=== PATIENT | female | born 1965 | race Caucasian/White ===

== ENCOUNTER 2017-04-04 14:40 | Emergency (ER) | payer OTHER ==
[2017-04-04 15:08] VITALS: BP 145/94
--- NOTE | 2017-04-04 15:31 | ED Physician Documentation ---
History of Present Illness - Stated complaint Stated Complaint: MEMORY LOSS, FELL OFF HORSE - Chief complaint Chief Complaint: Trauma Hd/Nk - Additonal information Additional information: hx from pt and 52 f per HBD today then fell off a horse not wearing a helmet did not witness pt cannot recall the fall - amnesia and AMS pt denies any pain Review of Systems Constitutional: denies: Fever Ears: denies: Drainage/discharge Nose: denies: Epistaxis Cardiac: denies: Chest pain / pressure Respiratory: denies: Dyspnea GI: denies: Abdominal Pain Musculoskeletal: denies: Neck pain, Back pain Neurologic: reports: Head injury (prsumed - not witnessed). denies: Headache Endocrine: denies: Easy bruising / bleeding Immunocompromised: denies: Immunocompromised PD PAST MEDICAL HISTORY - Present Medications Home Medications: Ambulatory Orders Medication Instructions Recorded Confirmed No Known Home Medications [No 04/04/17 04/04/17 Known Home Medications] - Allergies Allergies/Adverse Reactions: Allergies Allergy/AdvReac Type Severity Reaction Status Date / Time No Known Drug Allergies Allergy Verified 04/04/17 15:08 PD ED PE NORMAL - Vitals Vital signs reviewed: Yes (tachy) - General General: Alert and oriented X 3 - HEENT HEENT: Atraumatic, PERRL, Other (NT to palpate, no blood) - Neck Neck: No bony TTP (cant clear 2/2 EtOH so will iamge) - Cardiac Cardiac: RRR (tachy) - Respiratory Respiratory: No respiratory distress, Clear bilaterally - Abdomen Abdomen: Other (absolutely non distension, no TTP anywhere, no bruising) - Derm Derm: Normal color - Extremities Extremities: No deformity, No tenderness to palpate, Normal ROM s pain - Neuro Neuro: Alert and oriented X 3, Other (odd affect, seems anxious and a bit belligerent) Results - Vitals Vitals: Vital Signs - 24 hr 04/04/17 15:02 Temperature 36.4 C L Heart Rate 130 H Respiratory 16 Rate Blood Pressure 145/94 H O2 Saturation 97 Oxygen O2 Source Room air PD MEDICAL DECISION MAKING - ED course ED course: pt with odd affect and not willing to get recommended testing and cannot elaborate for me why she does not want to get testing - she just doesn't per HBD - possible HI but not witness and pt has no signs of head trauma and denies MURRAY - but pt is steady on her feet, alert oriented X 3, able to listen to my rec and concerns and repeat back to me risks and benefits of testing vs leaving AMA so feel pt is making a poor choice but appears to have the capacity to make this decision her states he will watch over her at home they both promise to return if worse in any way Departure - Departure Disposition: 07 Against Medical Advice Clinical Impression: Concussion Qualifiers: Encounter type: initial encounter Loss of consciousness presence/duration: with LOC of unspecified duration Qualified Code(s): S06.0X9A - Concussion with loss of consciousness of unspecified duration, initial encounter Condition: Fair Comments: I am worried about your loss of memory and have recommended a CT scan of your head and spine to rule out fracture and brain or spinal cord injuries. Also I am worried about your fast heart rate and recommended blood work to help evaluate possible causes of that as well I have carefully explained to you the reasons I recommend these tests and you are declining to get the tests done. You have verbalized that you understand why I recommend the tests and that you could have a bad outcome or even if you do not get the tests done You want to go home and have the right to make that decision. Your has said he will watch you at home . If you get worse or change your mind at any time, please come back to the ER - we are not mad and would welcome the opportunity to care for you Discharge Date/Time: 04/04/17 15:53
== END 2017-04-04 15:53 | disposition left against medical advice (07) ==
LOC: ED 14:40
DX: S06.0X9A Concussion with loss of consciousness of unspecified duration, initial encounter (principal); V80.010A Animal-rider injured by fall from or being thrown from horse in noncollision accident, initial encounter; R41.3 Other amnesia
CPT/HCPCS: 80053; 80320; 83690; 85025; 99283

== ENCOUNTER 2021-08-25 09:11 | Outpatient (CLI) | payer OTHER ==
--- NOTE | 2021-08-27 16:13 | CARDIAC PROCEDURE NOTE ---
Stress Test Report Service Date: 08/25/21 Service Time: 09:30 Ordering Provider: Rich Alfredo Indication for Test: Assess for an ischemic contribution to dyspnea, occurring either at rest or with exertion. Significant Medical History: -Adelaida describes herself as a previously very active and athletic person, having participated in [employer] events and [employer] for many years. 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 She was reportedly in stable health prior to an episode in April, where she awoke in the morning from a dream that she was having a heart attack, finding her systolic blood pressure to be 200. Although she was advised to seek evaluation at an Emergency Department she deferred this and was seen by her primary provider about 10 days later. 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 -When she was seen in clinic she described an acute increase in chronic dyspnea, with blood pressures in the 140s. She was initiated on therapy that included metoprolol, rosuvastatin, albuterol (to use as needed for a different kind of dyspnea suggesting acute bronchospasm) and prn Xanax. She had a difficult time adjusting to the medications initially and ultimately discerned that the primary offender appeared to be rosuvastatin making her very weak, such that she replaced this with red yeast rice. -Today she reports that in the past 2 weeks on a stable regimen of metoprolol succinate 25 mg twice daily and prn use of albuterol and Xanax she is feeling better than she had been since the April incident. 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 She denies experiencing exertional chest discomfort, lightheadedness or significant palpitations, though does have intermittent discomfort at the inferior margin of her left scapula without or with some discomfort down the lateral surface of her upper left arm. Cardiac Risk Factors: Positive for hypertension (possibly as far back as 15-20 years), hyperlipidemia and some family history of CAD (father in elder years); she has no history of diabetes and smoked tobacco cigarettes for 10 years but quit 17 years ago. Type of Stress Test: ETT with Echocardiography Procedure: -Exercise Treadmill Test- After signing informed consent, the patient baseline echo imaging at rest and then performed exercise using a Anthony protocol. The patient exercised for 7 minutes 2 seconds and achieved a peak heart rate of 167 (101 percent predicted maximum heart rate for age), and an estimated workload of 10.2 METS. The test was terminated due to fatigue/shortness of breath. Resting heart rate: 91 Peak heart rate: 167 Normal response to exercise. Resting BP: 160/107 Peak BP: 218/82 Hypertensive at rest with physiologic response of systolic and diastolic blood pressures to exercise. Rhythm during exercise: Sinus rhythm throughout, with rare isolated PACs and PVCs, with a single PAC couplet recorded. Symptoms: In early stage 2 she noted her typical mild cramp-like discomfort at the lower margin of her medial scapula; this did not worsen with more exertion and abated rapidly in recovery. She denied left chest or arm discomfort. Although she was breathing heavily throughout the protocol, dyspnea was not more limiting than overall fatigue in decision to stop walking. EKG at rest showed normal sinus rhythm, normal in all aspects. EKG at peak stress showed J-point depression with upsloping ST depression, NOT meetinhg diagnostic criteria for ischemia. In Recovery heart rate rapidly and normally returned to baseline level and BP gradually decreased, though remaining slightly elevated above baseline (183/79 at 5:00). Echo imaging performed at rest and with stress will be reported separately. Cornelio Bone MD, was present throughout this treadmill stress echocardiogram and supervised it in its entirety. Summary: 1) Average exercise tolerance for age and gender as evidenced by EILEEN of 0.6%. 2) Normal resting EKG. 3) Adequate level of exercise was achieved on this treadmill stress test. 4) Hypertensive at rest with physiologic BP response to exercise; note patient has been off metoprolol for 72 hours prior to the study. 5) No ischemic changes by EKG criteria were seen at peak stress. 6) Echo image interpretation reveals normal left ventricular size and systolic function, with appropriate hyperdynamic augmentation of all segments with exercise, indicating no evidence of prior infarct or inducible ischemia. No valve abnormality, LV hypertrophy or elevation in estimated pulmonary artery systolic pressure on screening study. See separate report for more details. CONCLUSIONS: Reassuringly low risk treadmill stress echocardiogram with no symptom, EKG of echo evidence of inducible ischemia.
== END 2021-08-25 09:12 | disposition home or self-care (01) ==
LOC: DI 09:11
PROVIDERS: ATTEND Internal Medicine
DX: R06.09 Other forms of dyspnea (principal); I10 Essential (primary) hypertension; E78.5 Hyperlipidemia, unspecified; Z82.49 Family history of ischemic heart disease and other diseases of the circulatory system; Z87.891 Personal history of nicotine dependence
CPT/HCPCS: 93016; 93017; 93018; 93350

== ENCOUNTER 2021-08-25 09:14 | Outpatient (CLI) | payer OTHER ==
--- NOTE | 2021-08-25 09:40 | CARDIAC PROCEDURE NOTE ---
Stress Test Report Service Date: 08/25/21 Service Time: 09:30 Ordering Provider: Rich Alfredo Indication for Test: Assess for an ischemic contribution to dyspnea, occurring either at rest or with exertion. Significant Medical History: -Adelaida describes herself as a previously very active and athletic person, having participated in [employer] events and [employer] for many years. 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 She was reportedly in stable health prior to an episode in April, where she awoke in the morning from a dream that she was having a heart attack, finding her systolic blood pressure to be 200. Although she was advised to seek evaluation at an Emergency Department she deferred this and was seen by her primary provider about 10 days later. In the interim she described marked debility with severe weakness, noting inability to car pick up driver Thanksgiving dinner, for example. -When she was seen in clinic she described an acute increase in chronic dyspnea, with blood pressures in the 140s. She was initiated on therapy that included metoprolol, rosuvastatin, albuterol (to use as needed for a different kind of dyspnea suggesting acute bronchospasm) and prn Xanax. She had a difficult time adjusting to the medications initially and ultimately discerned that the primary offender appeared to be rosuvastatin making her very weak, such that she replaced this with red yeast rice. -Today she reports that in the past 2 weeks on a stable regimen of metoprolol succinate 25 mg twice daily and prn use of albuterol and Xanax she is feeling better than she had been since the April incident. 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 She denies experiencing exertional chest discomfort, lightheadedness or significant palpitations, though does have intermittent discomfort at the inferior margin of her left scapula without or with some discomfort down the lateral surface of her upper left arm. Cardiac Risk Factors: Positive for hypertension (possibly as far back as 15-20 years), hyperlipidemia and some family history of CAD (father in elder years); she has no history of diabetes and smoked tobacco cigarettes for 10 years but quit 17 years ago. Type of Stress Test: ETT with Echocardiography Procedure: -Exercise Treadmill Test- After signing informed consent, the patient baseline echo imaging at rest and then performed exercise using a Anthony protocol. The patient exercised for 7 minutes 2 seconds and achieved a peak heart rate of 167 (101 percent predicted maximum heart rate for age), and an estimated workload of 10.2 METS. The test was terminated due to fatigue/shortness of breath. Resting heart rate: 91 Peak heart rate: 167 Normal response to exercise. Resting BP: 160/107 Peak BP: 218/82 Hypertensive at rest with physiologic response of systolic and diastolic blood pressures to exercise. Rhythm during exercise: Sinus rhythm throughout, with rare isolated PACs and PVCs, with a single PAC couplet recorded. Symptoms: In early stage 2 she noted her typical mild cramp-like discomfort at the lower margin of her medial scapula; this did not worsen with more exertion and abated rapidly in recovery. She denied left chest or arm discomfort. Although she was breathing heavily throughout the protocol, dyspnea was not more limiting than overall fatigue in decision to stop walking. EKG at rest showed normal sinus rhythm, normal in all aspects. EKG at peak stress showed J-point depression with upsloping ST depression, NOT meetinhg diagnostic criteria for ischemia. In Recovery heart rate rapidly and normally returned to baseline level and BP gradually decreased, though remaining slightly elevated above baseline (183/79 at 5:00). Echo imaging performed at rest and with stress will be reported separately. Cornelio Bone MD, was present throughout this treadmill stress echocardiogram and supervised it in its entirety. Summary: 1) Average exercise tolerance for age and gender as evidenced by EILEEN of 0.6%. 2) Normal resting EKG. 3) Adequate level of exercise was achieved on this treadmill stress test. 4) Hypertensive at rest with physiologic BP response to exercise; note patient has been off metoprolol for 72 hours prior to the study. 5) No ischemic changes by EKG criteria were seen at peak stress. 6) Echo images reported separately. PRELIMINARY CONCLUSIONS: 1) Reassuringly low risk treadmill stress echocardiogram with no symptom or EKG evidence of inducible ischemia. 2)
--- NOTE | 2021-08-25 21:01 | CT Report ---
PROCEDURE: CHEST WO INDICATIONS: KENT TECHNIQUE: Noncontrast 1mm axial images were acquired from the pulmonary apices to the posterior costophrenic an gles. Axial 5 mm soft tissue kernel reconstructions were performed as well as 8 mm axial MIP and cor onal and sagittal 5 mm reformations. For radiation dose reduction, the following was used: automate d exposure control, adjustment of mA and/or kV according to patient size. COMPARISON: None. FINDINGS: Image quality: Excellent. Lungs and pleura: No acute air space opacities. No septal thickening or nodularity. No pleural effus ions or pneumothorax. Central and peripheral airways are patent and normal in caliber. No evidence f or bronchiectasis. No evidence for pulmonary emphysematous changes. No suspicious pulmonary nodules o r masses. Mediastinum: Heart size is normal. No pericardial effusion. Atherosclerotic calcifications of the c oronary arteries are present. No mediastinal adenopathy by size criteria. Thoracic aorta and central pulmonary arteries are normal in size. Scattered atherosclerotic calcifications are present. Esophag us is normal in caliber. No hiatal hernia. Bones and chest wall: No suspicious bony lesions. No acute vertebral body compression fractures. N o axillary or supraclavicular adenopathy by size criteria. The thyroid is normal in size and there a re no incidental findings. Abdomen: Visualized upper abdominal solid organs and bowel loops appear normal in the absence of con trast. IMPRESSION: CT chest without acute cardiopulmonary abnormalities. No focal airspace disease. No suspicious pulmon sergio nodules or masses. No abnormalities identified to explain patient's dyspnea on exertion. CLINICAL RECOMMENDATION STATEMENTS: In patients <35 years with an ITN detected on CT, MRI, or extrathyroidal ultrasound, the Committee re commends further evaluation with dedicated thyroid ultrasound if the nodule is "e1 cm and has no susp icious imaging features, and if the patient has normal life expectancy. In patients "e35 years with an ITN detected on CT, MRI, or extrathyroidal ultrasound, the Committee r ecommends further evaluation with dedicated thyroid ultrasound if the nodule is "e1.5 cm and has no s uspicious imaging features, and if the patient has normal life expectancy. (ACR, 2014) Reviewed by: Ryan Byrd MD on 08/25/2021 9:00 PM PST Approved by: Ryan Byrd MD on 08/25/2021 9:00 PM PST Station ID: [id number]
== END 2021-08-25 09:15 | disposition home or self-care (01) ==
LOC: DI 09:14
PROVIDERS: ATTEND Internal Medicine
DX: R06.09 Other forms of dyspnea (principal); I10 Essential (primary) hypertension; E78.5 Hyperlipidemia, unspecified; Z82.49 Family history of ischemic heart disease and other diseases of the circulatory system; Z87.891 Personal history of nicotine dependence
CPT/HCPCS: 93016; 93017; 93018; 93350

== ENCOUNTER 2022-04-22 08:32 | Outpatient (CLI) | payer OTHER ==
[2022-04-22 14:40] LABS: BASOPHILS # (AUTO) 0.1 10^3/uL (0.0-0.1); BASOPHILS % (AUTO) 0.9 %; EOSINOPHILS # (AUTO) 0.2 10^3/uL (0.0-0.7); EOSINOPHILS % (AUTO) 4.2 %; HCT - HEMATOCRIT 42.2 % (37.0-47.0); LYMPHOCYTES # (AUTO) 1.8 10^3/uL (1.5-3.5); LYMPHOCYTES % (AUTO) 33.8 %; MEAN CORPUSCULAR HEMOGLOBIN 30.7 pg (27.0-31.0); MEAN CORPUSCULAR HGB CONC 33.2 g/dL (32.0-36.0); MEAN CORPUSCULAR VOLUME 92.5 fL (81.0-99.0); MEAN PLATELET VOLUME 9.9 fL (7.9-10.8); MONOCYTES # (AUTO) 0.5 10^3/uL (0.0-1.0); MONOCYTES % (AUTO) 8.7 %; NEUTROPHILS # (AUTO) 2.8 10^3/uL (1.5-6.6); NEUTROPHILS % (AUTO) 52.2 %; PLT - PLATELET COUNT 242 10^3/uL (130-450); RED BLOOD COUNT 4.56 10^6/uL (4.20-5.40); RED CELL DISTRIBUTION WIDTH 11.9 % (12.0-15.0); WHITE BLOOD COUNT 5.3 x10^3/uL (4.8-10.8)
[2022-04-22 15:25] LABS: THYROID STIMULATING HORMONE 6.59 uIU/mL (0.34-5.60)
[2022-04-22 15:31] LABS: % IRON SATURATION 29 % (20-50); ALBUMIN 4.2 g/dL (3.2-5.5); ALBUMIN/GLOBULIN RATIO 1.3 (1.0-2.2); ALKALINE PHOSPHATASE 68 IU/L (42-121); ALT ALANINE AMINOTRANSFERASE 82 IU/L (10-60); AST ASPARTATE AMINOTRANSFERASE 64 IU/L (10-42); BILIRUBIN,DIRECT 0.1 mg/dL (0.1-0.5); BILIRUBIN,TOTAL 0.7 mg/dL (0.2-1.0); BUN - BLOOD UREA NITROGEN 14 mg/dL (6-20); CALCIUM 9.2 mg/dL (8.5-10.3); CARBON DIOXIDE - CO2 22 mmol/L (21-32); CHLORIDE 107 mmol/L (101-111); CHOL/HDL RATIO 4.7 (<4.4); CHOLESTEROL 264 mg/dL; CREATININE 0.8 mg/dL (0.4-1.0); CRP HIGH SENSITIVITY 0.7 mg/L; GFR - MDRD 74 (>89); GLUCOSE 102 mg/dL (70-100); HDL CHOLESTEROL 56 mg/dL; IRON 105 ug/dL (28-170); LDL CHOLESTEROL,CALCULATED 184 mg/dL; LDL/HDL RATIO 3.3 (<4.4); PHOSPHORUS 3.2 mg/dL (2.5-4.6); POTASSIUM 4.1 mmol/L (3.5-5.0); SODIUM 136 mmol/L (135-145); TOTAL IRON BINDING CAPACITY 365 ug/dL (250-450); TOTAL PROTEIN 7.5 g/dL (6.7-8.2); TRANSFERRIN 261 mg/dL (192-382); TRIGLYCERIDES 122 mg/dL; URIC ACID 4.9 mg/dL (2.6-7.2); VLDL CHOLESTEROL 24 mg/dL
[2022-04-22 15:36] LABS: FOLATE 22.9 ng/mL (5.90 - >24.8)
== END 2022-04-22 08:33 | disposition home or self-care (01) ==
LOC: LAB.S 08:32
PROVIDERS: ATTEND Internal Medicine
DX: R53.83 Other fatigue (principal); E78.5 Hyperlipidemia, unspecified; R79.89 Other specified abnormal findings of blood chemistry
CPT/HCPCS: 36415; 80053; 80061; 81599; 82248; 82306; 82607; 82746; 83540; 83615; 83721; 84100; 84436; 84439; 84443; 84466; 84479; 84481; 84550; 85025; 85651; 86141